=== PATIENT | male | born 1945 | race Caucasian/White ===

== ENCOUNTER 2018-12-23 21:46 | Inpatient (IN) | payer OTHER ==
[2018-12-24 01:37] VITALS: BP 126/69
[2018-12-24] MEDS ORDERED: Magnesium Hydroxide (MOM) 30 mL UDC PO PRN (01:38)
[2018-12-24] MEDS ORDERED: Dextrose 50% 50 mL Abboject IVP PRN (02:31)
[2018-12-24] MEDS ORDERED: GLUCAGON HCl 1 MG KIT IM PRN (02:31)
[2018-12-24] MEDS: INSULIN LISPRO SLIDING SCALE 100 UNITS/ML UNIT SUBQ SCH ×4 (06:46→20:18)
[2018-12-24 07:21] LABS: CHOLESTEROL 115 mg/dL (<200); HDL -HIGH DENSITY LIPOPROTEIN 31 mg/dL (23-92); TRIGLYCERIDES 208 mg/dL (<150)
[2018-12-24] MEDS ORDERED: Insulin Glargine 100 units/ml 10ml Vial SUBQ SCH (09:00)
[2018-12-24] MEDS ORDERED: Clotrimazole 1% Vaginal Cream 45 gm Tube VG SCH (09:00)
[2018-12-24] MEDS: Multivitamin Tab PO SCH (09:47)
[2018-12-24] MEDS: Aspirin 81mg Chewable Tab PO SCH (09:47)
--- NOTE | 2018-12-24 23:28 | History & Physical ---
ADMIT DATE: 12/24/2018 REASON FOR ADMISSION: Psychiatric disorder. HISTORY OF PRESENT ILLNESS: This is a 73-year-old male admitted to [facility] Unit for underlying psychiatric illnesses by Dr. Braun on this patient. The patient with underlying history of diabetes, hypertension, morbid obesity, diabetic neuropathy, and chronic low back pain. PAST SURGICAL HISTORY: Back surgery in the past. FAMILY HISTORY: No significant family history reported. SOCIAL HISTORY: The patient is a chronic smoker. Denies any alcohol or drug use. CURRENT MEDICATIONS: Per medication reconciliation. ALLERGIES: No known drug allergy. REVIEW OF SYSTEMS: Denies any fever. No chills, no nausea, no vomiting, no abdominal pain, no chest pain or trouble breathing. No headache. No hematemesis, no melena, no dysuria, no hematuria. Complaining of back pain. PHYSICAL EXAMINATION: VITAL SIGNS: Temperature 97.5, pulse 63, respirations 18, blood pressure 138/60. HEART: S1, S2 normal. LUNGS: Clear to auscultation bilaterally. ABDOMEN: Soft, nontender. NEUROLOGIC: The patient is alert, awake, follows commands, moves all extremities. EXTREMITIES: Bilateral mild edema noted. AVAILABLE LABORATORY DATA: As noted. ASSESSMENT: 1. Diabetes. 2. Hypertension. 3. Hyperlipidemia. 4. Morbid obesity. 5. Nicotine abuse. 6. Psych disorder. PLAN: Psych management per psychiatrist. The patient will be continued on basal-bolus insulin, diabetic diet. Monitor blood pressure. Monitor vitals. Naproxen for back pain. Smoking cessation advised. Psych management per psychiatrist. The patient is medically stable. Thank you Dr. Braun for allowing us to participate in the care of this patient. [facility]# [id number]
--- NOTE | 2018-12-25 03:01 | Psychiatric Evaluation ---
DATE OF SERVICE: 12/23/2018 IDENTIFYING DATA: The patient is a 73-year-old male transferred over here from [facility]. JUSTIFICATION FOR HOSPITALIZATION: The patient is admitted on 5150 as a danger to self and danger to others. CHIEF COMPLAINT: "I do not understand why they have to send me in here." HISTORY OF PRESENT ILLNESS: This patient is a 73-year-old male transferred from [facility], a resident of [facility] diagnosed to have bipolar disorder and the patient was reported to have been screaming and yelling and has been throwing himself out of the chair and also has been verbally abusive towards the staff members. The patient has been given a dose of Haldol, Ativan, and Benadryl and the patient was placed on 5150 and admitted over here for stabilization. During the evaluation, the patient is stating that he needs to have his trazodone. He needs to have his pain medications and the patient has been very aggressive and abusive towards the staff members. PAST PSYCHIATRIC HISTORY: Details are not known. MEDICAL HISTORY AND PHYSICAL EXAMINATION: Physical examination is requested to be done by Dr. Auguste. At the time of the hospitalization, the patient has been getting the insulin. The patient is also on the Latuda, lithium carbonate and trazodone. SUBSTANCE ABUSE HISTORY: Details are not known. SOCIAL HISTORY: The patient is a resident of the [facility] in [place]. STRENGTH AND ASSETS: The patient is motivated to seek some help. MENTAL STATUS EXAMINATION: The patient is a 73-year-old moderately obese, superficially cooperative. Eye contact is poor. Mood is noted to be irritable. Affect is constricted. The patient is screaming and yelling and I am not able to get much of information from him. The patient insight and judgment at this time are noted to be very much impaired. Impulse control is noted to be poor. The patient is alert and aware that he is in the hospital. Attention span and concentration are noted to be fair. The patient's behavior is equally danger to self and others. DIAGNOSTIC IMPRESSION: AXIS I: Bipolar disorder, mixed. AXIS II: None. AXIS III: As per Dr. Auguset. IMMEDIATE TREATMENT PLAN: The patient is going to be observed on the inpatient unit, provided with supportive psychotherapy. The patient is going to be encouraged to participate in the groups and verbalize the concerns. Once stabilized, the patient is going to be discharged to self to be followed up on an outpatient basis. [facility]# [id number]
[2018-12-25 05:09] LABS: A1C 6.9 % (4.8-5.6)
[2018-12-25] MEDS: INSULIN LISPRO SLIDING SCALE 100 UNITS/ML UNIT SUBQ SCH ×4 (06:30→20:51)
[2018-12-25] MEDS: Aspirin 81mg Chewable Tab PO SCH (09:29)
[2018-12-25] MEDS: Multivitamin Tab PO SCH (09:29)
[2018-12-25] MEDS: Insulin Glargine 100 units/ml 10ml Vial SUBQ SCH ×2 (10:10→10:18)
[2018-12-25] MEDS ORDERED: Haloperidol Lactate 5 mg/mL 1mL Vial IM STA (13:00)
[2018-12-25] MEDS ORDERED: Haloperidol Lactate 5 mg/mL 1mL Vial ONE (13:05)
--- NOTE | 2018-12-26 02:49 | Progress Notes ---
DATE: 12/25/2018 SUBJECTIVE: Staff was spoken to. The patient is interviewed. Mood is noted to be irritable. Affect is constricted. The patient is screaming and yelling at the top of his lungs. The patient has been verbally abusive. The patient has to be given a dose of Haldol, Ativan, and Benadryl to calm him down. The patient is currently on Seroquel, which is going to be increased to 20 mg twice a day and the patient is going to be closely monitored and encouraged to verbalize the concerns rather than to act out. The patient has no insight into his illness. The patient is very demanding for more pain medications and he is dictating what he needs to get. ASSESSMENT: The patient is still impulsive. PLAN: To continue the patient with the supportive therapy. I encouraged the patient to verbalize the concerns rather than to act out. [facility]# [id number]
[2018-12-26] MEDS: INSULIN LISPRO SLIDING SCALE 100 UNITS/ML UNIT SUBQ SCH ×4 (06:43→20:41)
[2018-12-26] MEDS: Multivitamin Tab PO SCH (08:35)
[2018-12-26] MEDS: Aspirin 81mg Chewable Tab PO SCH (08:35)
[2018-12-26] MEDS: Insulin Glargine 100 units/ml 10ml Vial SUBQ SCH (08:36)
--- NOTE | 2018-12-26 23:39 | Progress Notes ---
DATE: 12/26/2018 PSYCHIATRIC PROGRESS NOTE SUBJECTIVE: Staff was spoken to. The patient is interviewed. Mood is noted to be irritable. Affect is constricted. The patient is screaming and yelling. The patient has been throwing the stuff around. The patient has no insight into his illness. Staff has been trying to medicate the patient. The patent has been okay this morning, but this afternoon the patient has been getting out of control. In view of his multiple medical problems, we have been very careful in medicating this patient. The patient is currently on 25 mg of Seroquel, planning to increase that one to 50 mg twice a day and follow the patient. In view of the agitation and anxiety, we decided to increase the dose of the Ativan also to 1 mg q.4 hours p.r.n. for his anxiety. PLAN: To closely monitor the patient and followup. JOB# [id number]
[2018-12-27] MEDS: INSULIN LISPRO SLIDING SCALE 100 UNITS/ML UNIT SUBQ SCH ×4 (06:31→21:50)
[2018-12-27] MEDS: Maalox 30 mL Cup PO PRN ×3 (07:45→22:46)
[2018-12-27] MEDS: Aspirin 81mg Chewable Tab PO SCH (08:35)
[2018-12-27] MEDS: Multivitamin Tab PO SCH (08:37)
[2018-12-27] MEDS: Insulin Glargine 100 units/ml 10ml Vial SUBQ SCH (08:43)
--- NOTE | 2018-12-27 09:06 | Consultation ---
DATE OF CONSULTATION: 12/25/2018 REFERRING PHYSICIAN: Willy Hawkins MD TYPE OF CONSULTATION: Psychology. HISTORY OF PRESENT ILLNESS: The patient is a 73-year-old male patient. The patient was transferred here from [facility] and is being admitted on a 5150 as danger to self and to others. Upon interview, the patient states he does not know why he is being sent here. The following is by record review and by the patient's self-report. Record review indicates that the patient was reported to have been screaming and yelling and throwing himself out of his wheelchair and verbally abusive towards staff members at his placement, which is [facility]. The patient is complaining about pain and needing pain medication immediately. The patient is behaviorally aggressive and waving his hands and is verbally abusive towards the staff here. The patient did not answer the majority of the clinical interview questions. PAST MEDICAL HISTORY: Please see history and physical by Dr. Auguste. PAST PSYCHIATRIC HISTORY: Records are unavailable. Details are unknown. SUBSTANCE ABUSE HISTORY: The patient declined to answer these questions. History is unknown. PSYCHOSOCIAL HISTORY: The patient did not answer questions about occupational or educational history. 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 The patient states that he is . He states that he has a family member named Miya, who is involved in his care. The patient did not identify whether this is his daughter or his or what relationship he has to the aforementioned. The patient did not answer questions about history of physical or sexual abuse or current legal problems. MENTAL STATUS EXAMINATION: The patient appears to be his stated age and is moderately obese. Attitude is uncooperative. Eye contact is avoidant. Speech is loud. Mood is irritable. Affect is constricted. Thought process shows to be confused. The patient did not answer questions about experiencing auditory or visual hallucinations or delusions. He did not answer the questions about experiencing suicidal ideation or homicidal ideation with plan or intention. The patient is intermittently screaming and yelling at this advertising writer during the clinical interview. Impulse control is inadequate. Concentration is [id number]. The patient is mostly dismissive and is not answering the clinical interview questions. The patient did not participate in the memory assessment. Sensorium is alert and oriented to self and place. The patient did not participate in the interpretation of proverbs. Insight is impaired. Judgment is impaired. DIAGNOSTIC IMPRESSION: AXIS I: History of bipolar disorder, mixed. AXIS II: Deferred. AXIS III: Per Dr. Auguste. TREATMENT PLAN: The patient has been seen by Dr. Hawkins for psychiatric evaluation and for the management of the patient's psychotropic medications. The patient was given emergency medicine initially due to his volatility. We will provide supportive psychotherapy to include de-escalation and limit setting. We will provide anger management. We will provide cognitive and behavioral redirection. We will encourage the patient to demonstrate emotional and self-regulation and to verbalize his concerns versus acting out. We will provide motivational enhancement for the patient to become compliant and stay compliant with all aspects of his care and treatment. We will provide daily opportunities for the patient to verbally contract for safety, including no self-harm and no harm to others. We will provide coping strategies for phase of life issues as well. Thank you, Dr. Hawkins for this consult and the opportunity to participate in this patient's care. [facility]# [id number] [facility]
--- NOTE | 2018-12-28 01:37 | Progress Notes ---
DATE: 12/27/2018 SUBJECTIVE: Staff was spoken to. The patient is interviewed. Mood is noted to be irritable. Affect is constricted. Insight and judgment at this time are noted to be still impaired. Impulse control is noted to be limited. The patient has been having poor coping skills. The patient has been very obnoxious and has been throwing the food and has been cursing the staff at this time. ASSESSMENT: The patient is still impulsive. PLAN: To continue the patient with the current medications. I encouraged the patient to verbalize the concerns rather than to act out. JOB# [id number]
[2018-12-28] MEDS: INSULIN LISPRO SLIDING SCALE 100 UNITS/ML UNIT SUBQ SCH ×4 (06:53→20:19)
[2018-12-28] MEDS: Multivitamin Tab PO SCH (08:58)
[2018-12-28] MEDS: Aspirin 81mg Chewable Tab PO SCH (08:59)
[2018-12-28] MEDS: Maalox 30 mL Cup PO PRN ×2 (09:01→20:39)
[2018-12-28] MEDS: Insulin Glargine 100 units/ml 10ml Vial SUBQ SCH (09:57)
--- NOTE | 2018-12-28 19:49 | Progress Notes ---
DATE: 12/28/2018 PSYCHOLOGY PROGRESS NOTE SUBJECTIVE: The patient is seen and is interviewed. Case is discussed with staff. The patient presents as irritable and guarded. The patient has poor insight into his illness. The staff reports the patient's impulse control is still problematic. Staff reports also that the patient is intrusive, i.e., making obnoxious comments as well as throwing food and using profanity at the staff. OBJECTIVE: Mood is irritable. Affect is constricted. Thought process shows to be confused. The patient denied any auditory or visual hallucinations; however, the patient seems to be responding to internal stimuli. The patient denied any suicidal ideation, plan or intention. The patient's behavior has been poorly redirectable. ASSESSMENT AND PLAN: The patient is still impulsive and not responding to behavioral management. We provided de-escalation and limit setting. We encouraged the patient to demonstrate emotional and self-regulation and to verbalize his concerns versus acting out with appropriate language versus profanity. We provided reality orientation and integration. We provided coping strategies for phase of life issues. We will follow up in 2 days to continue the present treatment if the patient remains admitted on the unit. JOB# [id number] HUDSON
--- NOTE | 2018-12-29 00:50 | Progress Notes ---
DATE: 12/28/2018 PSYCHIATRIC PROGRESS NOTE PROGRESS ON THE UNIT: Staff was spoken to. The patient is interviewed. Mood is noted to be irritable. Affect is constricted. Insight and judgment at this time are noted to be still impaired. Impulse control is noted to be limited. The patient is screaming and yelling and has been having difficult time to cope with the stress. The patient is currently on 300 mg twice a day of lithium and I have decided to increase that one to 3 times a day in view of the patient's acute mood swings. The patient is not able to contract for safety. The patient is throwing the stuff and is very disruptive and it is becoming very difficult for the patient to be redirected. The patient is currently on Seroquel which is being given at 50 mg twice a day, lithium is going to be increased to 300 mg three times a day, and the patient is going to be closely monitored. The patient's glucose is running a little bit on the high side. ASSESSMENT: The patient is still grossly psychotic and impulsive. PLAN: To continue the patient with supportive therapy and followup. JOB# [id number]
[2018-12-29] MEDS: Maalox 30 mL Cup PO PRN ×2 (04:53→13:59)
[2018-12-29] MEDS: INSULIN LISPRO SLIDING SCALE 100 UNITS/ML UNIT SUBQ SCH ×4 (06:29→21:08)
[2018-12-29] MEDS: Multivitamin Tab PO SCH (08:43)
[2018-12-29] MEDS: Aspirin 81mg Chewable Tab PO SCH (08:44)
[2018-12-29] MEDS: Insulin Glargine 100 units/ml 10ml Vial SUBQ SCH (09:09)
[2018-12-29] MEDS ORDERED: Haloperidol Lactate 5 mg/mL 1mL Vial IM ONE (16:00)
[2018-12-29] MEDS ORDERED: Haloperidol Lactate 5 mg/mL 1mL Vial ONE (16:03)
[2018-12-30] MEDS: Maalox 30 mL Cup PO PRN ×3 (00:54→21:52)
--- NOTE | 2018-12-30 03:20 | Progress Notes ---
DATE: 12/29/2018 SUBJECTIVE: Staff was spoken to. The patient is interviewed. Mood is noted to be irritable. Affect is constricted. The patient is screaming and yelling and has been throwing things around. The patient has to be medicated. The patient has no insight into his illness. The patient's frustration tolerance is noted to be very poor. In view of the patient's multiple medical problems, we have been very careful in increasing the doses of the medications. JOB# [id number]
[2018-12-30] MEDS: INSULIN LISPRO SLIDING SCALE 100 UNITS/ML UNIT SUBQ SCH ×4 (06:37→21:27)
[2018-12-30] MEDS: Aspirin 81mg Chewable Tab PO SCH (08:17)
[2018-12-30] MEDS: Multivitamin Tab PO SCH (08:17)
[2018-12-30] MEDS: Insulin Glargine 100 units/ml 10ml Vial SUBQ SCH (08:33)
--- NOTE | 2018-12-30 22:14 | General Progress Note ---
Subjective - Review of Systems Service Date: 12/30/18 Subjective: patient seen and examined doing ok no new concern noted Objective - Results Recent Labs: Laboratory Last Values POC Glucose 136 MG/DL (70 - 105) H 12/27/18 11:43 Triglycerides 208 mg/dL (<150) H 12/24/18 06:36 Cholesterol 115 mg/dL (<200) 12/24/18 06:36 LDL Cholesterol Direct 63 mg/dL (75-193) L 12/24/18 06:36 HDL Cholesterol 31 mg/dL (23-92) 12/24/18 06:36 - Physical Exam Vitals and I&O: Vital Signs Temp 97.4 F 12/30/18 20:00 Pulse 66 12/30/18 20:00 Resp 19 12/30/18 20:00 BP 127/76 12/30/18 20:00 Pulse Ox 97 12/30/18 20:00 Intake & Output 12/30/18 12/30/18 12/31/18 06:59 18:59 06:59 Intake Total 720 1550 Balance 720 1550 Intake: Oral 720 1550 Other: # Voids 4 6 # Bowel Movements 0 1 Active Medications: Current Medications Al Hydrox/Mg Hydrox/Simethicone (Maalox) 30 ml PO Q4HR PRN PRN Reason: GI DISTRESS Stop: 02/22/19 01:37 Last Admin: 12/30/18 21:52 Dose: 30 ml Aspirin (Aspirin Chewable) 81 mg PO DAILY [facility] Stop: 02/22/19 08:59 Last Admin: 12/30/18 08:17 Dose: 81 mg Atorvastatin Calcium (Lipitor) 40 mg PO [facility]; Protocol Stop: 02/22/19 20:59 Last Admin: 12/30/18 21:02 Dose: 40 mg Bisacodyl (Dulcolax 10 Mg Supp) 10 mg RC DAILY PRN PRN Reason: Constipation Stop: 02/22/19 02:37 Carvedilol (Coreg) 25 mg PO BID [facility] Stop: 02/22/19 08:59 Last Admin: 12/30/18 16:20 Dose: 25 mg Cholecalciferol (Vitamin D3) 1,000 iu PO BID [facility] Stop: 02/22/19 08:59 Last Admin: 12/30/18 16:20 Dose: 1,000 iu Clotrimazole (Lotrimin 1% Cream) 1 appl TP DAILY [facility] Stop: 02/22/19 10:14 Last Admin: 12/30/18 08:19 Dose: 1 appl Dextrose (D50w) 50 ml IVP PRN PRN PRN Reason: Blood Glucose less than 70 Stop: 02/22/19 02:30 Dextrose (Glutose 40%) 18.75 gm PO PRN PRN PRN Reason: Blood Glucose less than 70 Stop: 02/22/19 02:30 Docusate Sodium (Colace) 250 mg PO BID [facility] Stop: 02/22/19 08:59 Last Admin: 12/30/18 16:20 Dose: 250 mg Gabapentin (Neurontin) 600 mg PO HS [facility] Stop: 02/22/19 20:59 Last Admin: 12/30/18 21:05 Dose: 600 mg Glucagon (Glucagen) 1 mg IM PRN PRN PRN Reason: Blood Glucose less than 70 Stop: 02/22/19 02:30 Insulin Glargine (Lantus Insulin) 20 units SUBQ DAILY [facility] Stop: 02/23/19 08:59 Last Admin: 12/30/18 08:33 Dose: 20 units Insulin Human Lispro (Humalog Insulin Sliding Scale) 0 units SUBQ ACHS [facility]; Protocol Stop: 02/22/19 07:29 Last Admin: 12/30/18 21:27 Dose: Not Given [place] Carbonate (Eskalith) 300 mg PO TID [facility]; Protocol Stop: 02/26/19 20:59 Last Admin: 12/30/18 21:05 Dose: 300 mg Lorazepam (Ativan) 1 mg PO Q4HR PRN; Protocol PRN Reason: Anxiety Stop: 01/22/19 22:14 Last Admin: 12/30/18 00:36 Dose: 1 mg Multivitamins/Vitamin C (Theragran) 1 tab PO DAILY [facility] Stop: 02/22/19 08:59 Last Admin: 12/30/18 08:17 Dose: 1 tab Naproxen (Naprosyn) 500 mg PO BIDWM [facility] Stop: 02/22/19 07:59 Last Admin: 12/30/18 17:36 Dose: 500 mg Quetiapine Fumarate (Seroquel) 50 mg PO BID [facility]; Protocol Stop: 02/24/19 16:59 Last Admin: 12/30/18 16:20 Dose: 50 mg Trazodone HCl (Desyrel) 50 mg PO HS PRN; Protocol PRN Reason: Insomnia Stop: 02/22/19 20:59 Last Admin: 12/30/18 21:07 Dose: 50 mg Cardiovascular: Regular rate Lungs: Clear to auscultation Abdomen: Soft, no Tender Assessment/Plan - Assessment Assessment: DM II HTN Constipation Low back pain - Plan Plan: Stable medically Continue current treatment plan Psych follow up Accucheck Monitor vitals Naproxen prn Nutritional Asmnt/Malnutr-PDOC - Dietary Evaluation Malnutrition Findings (Please click <Entered> for more info): Nutritional Asmnt/Malnutrition Start: 12/28/18 14: 50 Text: Status: Complete Freq: Protocol: Document 12/28/18 14:50 [id number] (Rec: 12/28/18 14:54 [email or web address] [email or web address]) Nutritional Asmnt/Malnutrition Patient General Information Nutritional Screening Moderate Risk Diagnosis psychosis Pertinent Medical Hx/Surgical Hx DM, HTN, morbid obesity, diabetic neuropathy, chronic low back pain Subjective Information Pt seen lying in bed at time of visit, awake and alert. Food preference provided to RD . Per EMR< PO intake 100%. Current Diet Order/ Nutrition Support CCHO Pertinent Medications lipitor, vit D3, colace, lantus, humalog, theragran, seroquel Pertinent Labs 12/27 POC 139 12/24 POC 213 Nutritional Hx/Data Height 1.73 m Height (Calculated Centimeters) 172.7 Current Weight (lbs) 113.398 kg Weight (Calculated Kilograms) 113.4 Weight (Calculated Grams) 376715.1 [place] Body Weight 154 Body Mass Index (BMI) 38.0 Weight Status Obese GI Symptoms GI Symptoms None Last BM 12/27 x 4 Difficult in: None Skin Integrity/Comment: no skin problem. angélica 15 Current %PO Good (75-100%) Estimated Nutritional Goals BEE in Kcals: Adj wt of IBW Calories/Kcals/Kg 23-27 Kcals Calculated 1791-3216 Protein: Adj wt of IBW Protein g/k Protein Calculated 81 Fluid: ml [id number] (1ml/kcal) Nutritional Problem 1. Problem Problem altered nutrition related labs Etiology hx of DM Signs/Symptoms: POC 136-213 Malnutrition Alert Is there a minimum of two criteria No selected? Query Text:Check all the applicable criteria. A minimum of two criteria are recommended for diagnosis of either severe or non-severe malnutrition. Malnutrition Related to Morbid Obesity Malnutrition related to morbid obesity No Intervention/Recommendation Comments 1. Continue with CCHO diet as ordered. 2. Monitor PO intake, wt, labs and skin integrity 3. F/U as low risk in 7 days Expected Outcomes/Goals Expected Outcomes/Goals 1. PO intake to meet at least 75% of nutritional needs. 2. Wt stability, skin to remain intact, labs to approach WNL.
--- NOTE | 2018-12-31 00:42 | Progress Notes ---
DATE: 12/30/2018 PSYCHIATRIC PROGRESS NOTE PROGRESS ON THE UNIT: Staff was spoken to. The patient is interviewed. Mood is noted to be irritable. Affect is constricted. The patient is stating that he is not cared for and he does not like to be in here, he wants to go back to his facility. The patient is currently on 50 mg of Seroquel and the patient is also receiving 50 mg of trazodone at nighttime. The patient has been getting easily irritable yesterday and the patient has to be given an emergency dose of medications. The patient's insight and judgment are noted to be still impaired. Impulse control seems to be improving. No side effects to the medications are noted. ASSESSMENT: The patient is still impulsive. PLAN: To continue the patient with current medications and followup. JOB# [id number]
--- NOTE | 2018-12-31 02:39 | Progress Notes ---
DATE: 12/30/2018 PSYCHOLOGY PROGRESS NOTE SUBJECTIVE: The patient is seen in his room. The patient is yelling and screaming loudly and is not responding initially to the de-escalation. The patient continued to repeat "let me out of here." The patient is easily frustrated and agitated. Staff reports the patient is intermittently compliant with his care and treatment and is difficult to contain and difficult to approach according to the staff. OBJECTIVE: Mood is irritable. Affect is constricted. Thought process is confused. The patient did not answer questions about suicidal ideation. The patient did not answer questions about hallucinations or delusions. The patient did not answer the majority of the clinical interview questions. The patient is screaming and yelling and repeating that he needs to be let out of here. The patient is also moaning in between his verbal outbursts. ASSESSMENT AND PLAN: The patient's mood fluctuations persist. The patient is not responding to de-escalation or limit setting. Emergency medicine has been ordered. Medications are being closely monitored due to the patient's multiple medical problems. The patient has no insight into his illness. The patient has a long history of bipolar disorder with psychotic symptoms. The patient has been intermittently compliant with his medications. We provided motivational enhancement for the patient to become compliant and stay compliant with his care and treatment. We provided de-escalation and limit setting. We provided stress management to assist the patient in increasing his frustration tolerance. We provided remotivation for the patient to follow through with staff direction and to verbalize his concerns versus verbally acting out. We will follow up in 2 days to continue the present treatment if the patient remains on the unit. This selling underwriter will reassess the patient's capacity to benefit from psychology services and behavioral management approaches on the next visit. JOB# [id number] HUDSON
[2018-12-31] MEDS: INSULIN LISPRO SLIDING SCALE 100 UNITS/ML UNIT SUBQ SCH ×4 (06:29→21:34)
[2018-12-31] MEDS: Insulin Glargine 100 units/ml 10ml Vial SUBQ SCH (08:10)
[2018-12-31] MEDS: Maalox 30 mL Cup PO PRN ×2 (08:50→15:32)
[2018-12-31] MEDS: Aspirin 81mg Chewable Tab PO SCH (08:52)
[2018-12-31] MEDS: Multivitamin Tab PO SCH (08:52)
[2019-01-01] MEDS: INSULIN LISPRO SLIDING SCALE 100 UNITS/ML UNIT SUBQ SCH ×4 (06:33→20:28)
[2019-01-01] MEDS: Maalox 30 mL Cup PO PRN ×3 (06:43→20:10)
[2019-01-01] MEDS: Aspirin 81mg Chewable Tab PO SCH (09:00)
[2019-01-01] MEDS: Insulin Glargine 100 units/ml 10ml Vial SUBQ SCH (09:00)
[2019-01-01] MEDS: Multivitamin Tab PO SCH (09:14)
--- NOTE | 2019-01-01 09:54 | Progress Notes ---
DATE: 12/31/2018 PSYCHIATRIC PROGRESS NOTE SUBJECTIVE: Staff was spoken to. The patient is interviewed. Mood is noted to be irritable. Affect is constricted. The patient has been less irritable compared to the other days. The patient has been able to participate in the groups and verbalize the concerns. The patient's [id number], who is the power of prosecuting attorney has been spoken to in detail. It seems to be the patient's baseline and the patient's [id number] mentioned that the patient has not been like this one before and she was wondering whether he has been compliant with the medication or not. counselor manager has been trying to get in touch with the [facility] and is to see if they are going to accept the patient back or not. ASSESSMENT: The patient is stabilizing and awaiting placement. PLAN: To continue the patient with the supportive therapy and followup. JOB# [id number]
[2019-01-02] MEDS: Maalox 30 mL Cup PO PRN ×3 (02:43→16:32)
[2019-01-02] MEDS: INSULIN LISPRO SLIDING SCALE 100 UNITS/ML UNIT SUBQ SCH ×4 (06:34→20:54)
[2019-01-02] MEDS: Aspirin 81mg Chewable Tab PO SCH (07:59)
[2019-01-02] MEDS: Multivitamin Tab PO SCH (08:00)
[2019-01-02] MEDS: Insulin Glargine 100 units/ml 10ml Vial SUBQ SCH (08:16)
--- NOTE | 2019-01-02 17:52 | Progress Notes ---
DATE: 01/01/2019 DATE OF SERVICE: 01/01/2019 PSYCHOLOGY PROGRESS NOTE SUBJECTIVE: The patient is seen. The patient also was spoken to. Case is discussed with staff. The patient continues to be irritable and easily agitated; however, the patient seems to be less irritable during this visit. The staff indicates the patient's [id number] who has power of trust and estates attorney is involved in his care. The home health care case manager and the attending psychiatrist have discussed the patient's status with the patient's [id number]. Placement is being considered at this point. OBJECTIVE: Mood is irritable. Affect is constricted. Thought process includes perseveration on the patient's discharge. The patient is difficult to cognitively redirect and is generally antagonistic. Affect is constricted. The patient did not answer questions about experiencing auditory or visual hallucinations or delusions. The patient's behavior has been compliant with his p.o. medication. The patient participated in the milieu therapy at times, but is mostly isolative. ASSESSMENT AND PLAN: The patient is awaiting placement. Behavioral issues persist. We provided remotivation for the patient to become compliant and stay compliant with his care and treatment. We encouraged the patient to demonstrate emotional and self-regulation and to verbalize his concerns and needs appropriately versus acting out. We provided reality integration. We provided coping strategies for phase of life issues as well as for chronic severe mental illness. No followup is indicated at this point. The patient is awaiting placement. This contract technical writer will follow up contingent upon the patient's continued admission on the unit and if the patient demonstrates the capacity to benefit from psychotherapeutic and behavioral management interventions. [facility]# [id number] [place]
--- NOTE | 2019-01-02 19:49 | Progress Notes ---
DATE: 01/01/2019 SUBJECTIVE: Staff was spoken to. The patient is interviewed. Mood is noted to be irritable. Affect is constricted. The patient's insight and judgment at this time are noted to be improving. Impulse control is noted to be fair. The patient has been having difficult time to cope with the stress. The patient wants everything to be done immediately and if he does not meet his needs, the patient tends to scream and yell. No side effects to the medications are noted. jewelry manager has been spoken to and they have been trying to get the patient to the placement. So far they have been working and no placement is available. The patient's [id number] has been spoken to and she has been mentioning that the place that is the [facility] may not be appropriate place and that she wants him to be in a different area. ASSESSMENT: The patient is stabilizing. PLAN: To continue the patient with the supportive therapy, encouraged the patient and they wait for placement ____. [facility]# [id number]
[2019-01-03] MEDS: Maalox 30 mL Cup PO PRN (06:30)
[2019-01-03] MEDS: INSULIN LISPRO SLIDING SCALE 100 UNITS/ML UNIT SUBQ SCH ×4 (06:31→21:32)
[2019-01-03] MEDS: Multivitamin Tab PO SCH (08:24)
[2019-01-03] MEDS: Aspirin 81mg Chewable Tab PO SCH (08:25)
[2019-01-03] MEDS: Insulin Glargine 100 units/ml 10ml Vial SUBQ SCH (08:33)
[2019-01-04] MEDS: Maalox 30 mL Cup PO PRN ×2 (06:44→13:20)
[2019-01-04] MEDS: INSULIN LISPRO SLIDING SCALE 100 UNITS/ML UNIT SUBQ SCH ×4 (06:51→21:56)
[2019-01-04] MEDS: Multivitamin Tab PO SCH (09:24)
[2019-01-04] MEDS: Aspirin 81mg Chewable Tab PO SCH (09:24)
[2019-01-04] MEDS: Insulin Glargine 100 units/ml 10ml Vial SUBQ SCH (10:07)
[2019-01-05] MEDS: Maalox 30 mL Cup PO PRN ×3 (02:49→17:40)
[2019-01-05] MEDS: INSULIN LISPRO SLIDING SCALE 100 UNITS/ML UNIT SUBQ SCH ×4 (06:35→20:42)
[2019-01-05] MEDS: Aspirin 81mg Chewable Tab PO SCH (08:01)
[2019-01-05] MEDS: Multivitamin Tab PO SCH (08:03)
[2019-01-05] MEDS: Insulin Glargine 100 units/ml 10ml Vial SUBQ SCH (09:20)
[2019-01-06] MEDS: INSULIN LISPRO SLIDING SCALE 100 UNITS/ML UNIT SUBQ SCH ×4 (06:32→20:59)
[2019-01-06] MEDS: Aspirin 81mg Chewable Tab PO SCH ×2 (08:23→09:00)
[2019-01-06] MEDS: Multivitamin Tab PO SCH ×2 (08:23→09:00)
[2019-01-06] MEDS: Insulin Glargine 100 units/ml 10ml Vial SUBQ SCH (08:34)
--- NOTE | 2019-01-06 09:18 | Progress Notes ---
DATE: 01/05/2019 SUBJECTIVE: Staff was spoken to. The patient is interviewed. Mood is noted to be irritable. Affect is constricted. The patient is screaming and yelling, stating that he does not want to be here, he wants to go to a different facility. The patient has been having very poor impulse control. The patient is currently on lithium and has been able to tolerate the medication. The patient, in view of the impulsivity, needs to be continued with the current medications, but unfortunately, the patient has no place to return to because the staff has been mentioning that they have been not able to find a placement that is going to be approved with the current patient's insurance. They have applied for [facility] and patient's placement is pending at this time. The patient is currently on lithium and Seroquel and he is able to tolerate the medications. No side effects to the medications are reported at this time. The patient is still impulsive. The patient's mood swings are still a concern. ASSESSMENT: The patient is awaiting placement. PLAN: To continue the patient with supportive therapy. I encouraged the patient to verbalize the concerns rather than to act out. JOB# [id number]
--- NOTE | 2019-01-07 03:47 | Progress Notes ---
DATE: 01/06/2019 PSYCHIATRIC PROGRESS NOTE PROGRESS ON THE UNIT: Staff was spoken to. The patient is interviewed. Mood is noted to be less irritable. Affect is appropriate. The patient is stating that he is waiting for placement and he could not figure it out why he has to be here this long. No side effects to the medications are noted. Mood swings are coming under control. Sleep and appetite are also noted to be fair. ASSESSMENT: The patient's mood swings are coming under control. PLAN: To continue the patient with current medications. I encouraged the patient to verbalize the concerns rather than to act out. JOB# [id number]
[2019-01-07] MEDS: INSULIN LISPRO SLIDING SCALE 100 UNITS/ML UNIT SUBQ SCH ×4 (06:33→21:59)
[2019-01-07] MEDS: Aspirin 81mg Chewable Tab PO SCH (09:00)
[2019-01-07] MEDS: Multivitamin Tab PO SCH (09:00)
[2019-01-07] MEDS: Insulin Glargine 100 units/ml 10ml Vial SUBQ SCH (09:00)
[2019-01-08] MEDS: INSULIN LISPRO SLIDING SCALE 100 UNITS/ML UNIT SUBQ SCH ×4 (06:39→20:45)
[2019-01-08] MEDS: Insulin Glargine 100 units/ml 10ml Vial SUBQ SCH (08:13)
[2019-01-08] MEDS: Aspirin 81mg Chewable Tab PO SCH (08:13)
[2019-01-08] MEDS: Multivitamin Tab PO SCH (08:14)
[2019-01-08] MEDS: Maalox 30 mL Cup PO PRN ×2 (12:42→17:47)
--- NOTE | 2019-01-08 19:50 | Progress Notes ---
DATE: 01/08/2019 SUBJECTIVE: Staff was spoken to. The patient is interviewed. Mood is noted to be anxious. Affect is appropriate. The patient is not suicidal or homicidal. Insight and judgment are noted to be fair. Impulse control is also noted to be improving. No side effects to the medications are noted. The patient is currently on lithium and Seroquel and has been able to tolerate the medications. No side effects to the medications are noted. The patient's lithium level is noted to be 1.7 and hence it is decided to change the lithium to 300 mg b.i.d. and follow the patient up with supportive therapy. JOB# [id number]
[2019-01-09] MEDS: Maalox 30 mL Cup PO PRN (03:55)
[2019-01-09] MEDS: INSULIN LISPRO SLIDING SCALE 100 UNITS/ML UNIT SUBQ SCH ×4 (06:39→20:34)
--- NOTE | 2019-01-09 09:03 | Progress Notes ---
DATE: 01/08/2019 SUBJECTIVE: Staff was spoken to. The patient is interviewed. Mood is noted to be less irritable. Affect is appropriate. The patient is being closely monitored because the lithium level has been noted to be 1.27 and has been decreased to 300 mg twice a day. The patient is being closely monitored. No side effects to the medications are noted and the case fitter has been reporting that they have [facility] and so far no [facility] has been available and possibly saying that the patient is going to be discharged by Friday. ASSESSMENT: The patient is stabilizing and awaiting placement. PLAN: To continue the patient with the supportive therapy and followup. JOB# [id number]
[2019-01-09] MEDS: Multivitamin Tab PO SCH (09:15)
[2019-01-09] MEDS: Aspirin 81mg Chewable Tab PO SCH (09:16)
[2019-01-09] MEDS: Insulin Glargine 100 units/ml 10ml Vial SUBQ SCH (09:32)
--- NOTE | 2019-01-10 00:34 | Progress Notes ---
DATE: 01/09/2019 SUBJECTIVE: Staff was spoken to. The patient is interviewed. Mood is noted to be irritable. Affect is constricted. Insight and judgment at this time are noted to be still impaired. Impulse control seems to be improving. No side effects to the medications are noted. The patient is stating that he is doing fairly well and is waiting for placement. manager business systems has been spoken to and they are looking into placement of this patient through the [facility] and the placement is not available until Friday and the patient has been informed of it and we will continue the patient with her medications and followup. JOB# [id number]
[2019-01-10] MEDS: INSULIN LISPRO SLIDING SCALE 100 UNITS/ML UNIT SUBQ SCH ×4 (06:46→20:29)
[2019-01-10] MEDS: Insulin Glargine 100 units/ml 10ml Vial SUBQ SCH (09:00)
[2019-01-10] MEDS: Aspirin 81mg Chewable Tab PO SCH (09:22)
[2019-01-10] MEDS: Multivitamin Tab PO SCH (09:24)
--- NOTE | 2019-01-10 11:12 | Progress Notes ---
DATE: 01/09/2019 PSYCHOLOGY PROGRESS NOTE SUBJECTIVE: The patient is seen in followup to monitor the patient's behavior and compliance with care and treatment. The patient does not seem to be benefiting from psychotherapeutic interventions or behavioral management interventions provided. The patient is taking his medication and is being monitored on his lithium level. OBJECTIVE: Mood is irritable. Affect is constricted. Thought process shows to be concrete. The patient is generally oppositional. The patient did not answer questions about hallucinations or delusions. Staff reports the patient is expected to possibly be discharged by Friday. The patient continues to be isolative in his room with intermittent yelling episodes. ASSESSMENT AND PLAN: Staff reports the patient is possibly stabilizing and awaiting placement. The case sealer states that she is in coordination with the [facility] and that no placement has been available thus far. However, case management states that as soon as [facility] the [facility], the patient will be discharged. We will continue to provide treatment throughout the patient's hospital stay. Psychology services with respect to treatment have been discontinued. The patient has not participated or interacted with the therapeutic interventions provided. We provided positive reinforcement and remotivation for the patient to follow through with staff direction as well as accepting [facility] the [facility]. No followup is indicated. The patient is seen as a courtesy by the staff and the attending psychiatrist to provide monitoring of the patient's behavior and to provide remotivation for the patient to accept [facility] the [facility]. JOB# [id number] [place]
--- NOTE | 2019-01-10 23:20 | Progress Notes ---
DATE: 01/10/2019 SUBJECTIVE: Staff was spoken to. The patient is interviewed. Mood is noted to be irritable. Affect is constricted. Coping skills at this time are noted to very poor. The patient has been having difficult time to cope with the stress. The patient is stating that he has been waiting patiently for placement and also the patient has been willing to comply with the treatment. No belligerent behavior is noted at this time. The patient has been so far compliant with the medications. No side effects are noted. PLAN: To continue the patient with the current medications and followup. JOB# [id number]
[2019-01-11] MEDS: INSULIN LISPRO SLIDING SCALE 100 UNITS/ML UNIT SUBQ SCH ×4 (06:34→21:45)
[2019-01-11] MEDS: Insulin Glargine 100 units/ml 10ml Vial SUBQ SCH (08:22)
[2019-01-11] MEDS: Aspirin 81mg Chewable Tab PO SCH (08:22)
[2019-01-11] MEDS: Multivitamin Tab PO SCH (08:22)
--- NOTE | 2019-01-12 04:36 | Progress Notes ---
DATE: 01/11/2019 PSYCHIATRIC PROGRESS NOTE SUBJECTIVE: Staff was spoken to. The patient is interviewed. Mood is noted to be anxious. Affect is appropriate. The patient is reporting that someone promised him that he is going to be discharged and for placement, but nothing has happened. Staff was spoken to and they are mentioning that social service coordinator have been trying to reach the [facility] to have [facility] the patient, but so far no placement has been coming through. Insight and judgment at this time are noted to be improving. Impulse control is noted to be fair. No side effects to the medications are noted. ASSESSMENT: The patient is stabilizing and awaiting placement. PLAN: To continue the patient with the supportive therapy. I encouraged the patient to verbalize the concerns rather than to act out. JOB# [id number]
[2019-01-12] MEDS: INSULIN LISPRO SLIDING SCALE 100 UNITS/ML UNIT SUBQ SCH ×4 (06:51→21:06)
[2019-01-12] MEDS: Aspirin 81mg Chewable Tab PO SCH (08:13)
[2019-01-12] MEDS: Multivitamin Tab PO SCH (08:14)
[2019-01-12] MEDS: Insulin Glargine 100 units/ml 10ml Vial SUBQ SCH (08:49)
--- NOTE | 2019-01-12 20:58 | General Progress Note ---
Subjective - Review of Systems Service Date: 01/12/19 Subjective: patient doing ok no new concern noted Objective - Results Recent Labs: Laboratory Last Values POC Glucose 127 MG/DL (70 - 105) H 01/12/19 17:17 Triglycerides 208 mg/dL (<150) H 12/24/18 06:36 Cholesterol 115 mg/dL (<200) 12/24/18 06:36 LDL Cholesterol Direct 63 mg/dL (75-193) L 12/24/18 06:36 HDL Cholesterol 31 mg/dL (23-92) 12/24/18 06:36 [place] 1.27 mmol/L (0.5-1.0) H 01/05/19 18:10 - Physical Exam Vitals and I&O: Vital Signs Temp 98.3 F 01/12/19 20:16 Pulse 82 01/12/19 20:16 Resp 20 01/12/19 20:16 BP 110/65 01/12/19 20:16 Pulse Ox 95 01/12/19 20:16 Intake & Output 01/12/19 01/12/19 01/13/19 06:59 18:59 06:59 Intake Total 240 1600 120 Balance 240 1600 120 Intake: Oral 240 1600 120 Other: # Voids 2 4 3 # Bowel Movements 0 0 Active Medications: Current Medications Al Hydrox/Mg Hydrox/Simethicone (Maalox) 30 ml PO Q4HR PRN PRN Reason: GI DISTRESS Stop: 02/22/19 01:37 Last Admin: 01/09/19 03:55 Dose: 30 ml Aspirin (Aspirin Chewable) 81 mg PO DAILY [facility] Stop: 02/22/19 08:59 Last Admin: 01/12/19 08:13 Dose: 81 mg Atorvastatin Calcium (Lipitor) 40 mg PO [facility]; Protocol Stop: 02/22/19 20:59 Last Admin: 01/11/19 21:39 Dose: 40 mg Bisacodyl (Dulcolax 10 Mg Supp) 10 mg RC DAILY PRN PRN Reason: Constipation Stop: 02/22/19 02:37 Carvedilol (Coreg) 25 mg PO BID [facility] Stop: 02/22/19 08:59 Last Admin: 01/12/19 17:36 Dose: 25 mg Cholecalciferol (Vitamin D3) 1,000 iu PO BID [facility] Stop: 02/22/19 08:59 Last Admin: 01/12/19 17:34 Dose: 1,000 iu Dextrose (D50w) 50 ml IVP PRN PRN PRN Reason: Blood Glucose less than 70 Stop: 02/22/19 02:30 Dextrose (Glutose 40%) 18.75 gm PO PRN PRN PRN Reason: Blood Glucose less than 70 Stop: 02/22/19 02:30 Docusate Sodium (Colace) 250 mg PO BID [facility] Stop: 02/22/19 08:59 Last Admin: 01/12/19 17:36 Dose: Not Given Gabapentin (Neurontin) 600 mg PO HS [facility] Stop: 02/22/19 20:59 Last Admin: 01/11/19 21:40 Dose: 600 mg Glucagon (Glucagen) 1 mg IM PRN PRN PRN Reason: Blood Glucose less than 70 Stop: 02/22/19 02:30 Insulin Glargine (Lantus Insulin) 20 units SUBQ DAILY [facility] Stop: 02/23/19 08:59 Last Admin: 01/12/19 08:49 Dose: 20 units Insulin Human Lispro (Humalog Insulin Sliding Scale) 0 units SUBQ ACHS [facility]; Protocol Stop: 02/22/19 07:29 Last Admin: 01/12/19 16:37 Dose: Not Given [place] Carbonate (Eskalith) 300 mg PO BID [facility]; Protocol Stop: 03/09/19 08:59 Last Admin: 01/12/19 17:35 Dose: 300 mg Lorazepam (Ativan) 1 mg PO Q4HR PRN; Protocol PRN Reason: Anxiety Stop: 01/22/19 22:14 Last Admin: 01/12/19 17:36 Dose: 1 mg Multivitamins/Vitamin C (Theragran) 1 tab PO DAILY [facility] Stop: 02/22/19 08:59 Last Admin: 01/12/19 08:14 Dose: 1 tab Naproxen (Naprosyn) 500 mg PO BIDWM [facility] Stop: 02/22/19 07:59 Last Admin: 01/12/19 17:35 Dose: 500 mg Quetiapine Fumarate (Seroquel) 50 mg PO BID [facility]; Protocol Stop: 02/24/19 16:59 Last Admin: 01/12/19 17:36 Dose: Not Given Trazodone HCl (Desyrel) 50 mg PO HS PRN; Protocol PRN Reason: Insomnia Stop: 02/22/19 20:59 Last Admin: 01/11/19 21:50 Dose: 50 mg Cardiovascular: Regular rate Lungs: Clear to auscultation Abdomen: Soft, no Tender Assessment/Plan - Assessment Assessment: DM II HTN Constipation Low back pain - Plan Plan: Doing fine Continue current treatment plan Psych management per psych Monitor vitals Fall precaution Asp precaution Nutritional Asmnt/Malnutr-PDOC - Dietary Evaluation Malnutrition Findings (Please click <Entered> for more info): Nutritional Asmnt/Malnutrition Start: 12/28/18 14: 50 Text: Status: Complete Freq: Protocol: Document 12/28/18 14:50 LCHENG (Rec: 12/28/18 14:54 [id number]) Nutritional Asmnt/Malnutrition Patient General Information Nutritional Screening Moderate Risk Diagnosis psychosis Pertinent Medical Hx/Surgical Hx DM, HTN, morbid obesity, diabetic neuropathy, chronic low back pain Subjective Information Pt seen lying in bed at time of visit, awake and alert. Food preference provided to RD . Per EMR< PO intake 100%. Current Diet Order/ Nutrition Support CCHO Pertinent Medications lipitor, vit D3, colace, lantus, humalog, theragran, seroquel Pertinent Labs 12/27 POC 139 12/24 POC 213 Nutritional Hx/Data Height 1.73 m Height (Calculated Centimeters) 172.7 Current Weight (lbs) 113.398 kg Weight (Calculated Kilograms) 113.4 Weight (Calculated Grams) 593939.1 [place] Body Weight 154 Body Mass Index (BMI) 38.0 Weight Status Obese GI Symptoms GI Symptoms None Last BM 12/27 x 4 Difficult in: None Skin Integrity/Comment: no skin problem. angélica 15 Current %PO Good (75-100%) Estimated Nutritional Goals BEE in Kcals: Adj wt of IBW Calories/Kcals/Kg 23-27 Kcals Calculated 5477-8612 Protein: Adj wt of IBW Protein g/k Protein Calculated 81 Fluid: ml 1863-2187ml (1ml/kcal) Nutritional Problem 1. Problem Problem altered nutrition related labs Etiology hx of DM Signs/Symptoms: POC 136-213 Malnutrition Alert Is there a minimum of two criteria No selected? Query Text:Check all the applicable criteria. A minimum of two criteria are recommended for diagnosis of either severe or non-severe malnutrition. Malnutrition Related to Morbid Obesity Malnutrition related to morbid obesity No Intervention/Recommendation Comments 1. Continue with [facility]CHO diet as ordered. 2. Monitor PO intake, wt, labs and skin integrity 3. F/U as low risk in 7 days Expected Outcomes/Goals Expected Outcomes/Goals 1. PO intake to meet at least 75% of nutritional needs. 2. Wt stability, skin to remain intact, labs to approach WNL.
[2019-01-13] MEDS: INSULIN LISPRO SLIDING SCALE 100 UNITS/ML UNIT SUBQ SCH ×4 (06:48→20:02)
[2019-01-13] MEDS: Aspirin 81mg Chewable Tab PO SCH (08:45)
[2019-01-13] MEDS: Multivitamin Tab PO SCH (08:46)
[2019-01-13] MEDS: Insulin Glargine 100 units/ml 10ml Vial SUBQ SCH (09:06)
--- NOTE | 2019-01-13 20:10 | Progress Notes ---
DATE: 01/12/2019 PSYCHIATRIC PROGRESS NOTE SUBJECTIVE: Staff was spoken to. The patient is interviewed. Mood is noted to be irritable. Affect is constricted. Insight and judgment are noted to be still impaired. Impulse control is noted to be limited. Coping skills are noted to be limited. The patient has been having difficult time to cope with the stress. The patient is frustrated that he is still here, he wants to be placed. ASSESSMENT: The patient is stabilizing, not suicidal or homicidal. PLAN: To continue the patient with the supportive therapy and followup and await for placement. [facility]# [id number]
--- NOTE | 2019-01-14 08:53 | Progress Notes ---
DATE: 01/13/2019 SUBJECTIVE: Staff was spoken to. The patient is interviewed. Mood is noted to be irritable. Affect is constricted. The patient is stating that he is frustrated for being in here. He would like to go to a [facility] facility. client hr manager has been working on this, but so far no placement is available. The patient's mood swings are coming under control. No major side effects to the medications are noted. ASSESSMENT: The patient is stabilizing and awaiting placement. JOB# [id number]
[2019-01-14] MEDS: Aspirin 81mg Chewable Tab PO SCH (09:14)
[2019-01-14] MEDS: Insulin Glargine 100 units/ml 10ml Vial SUBQ SCH (09:15)
[2019-01-14] MEDS: Multivitamin Tab PO SCH (09:15)
[2019-01-14] MEDS: INSULIN LISPRO SLIDING SCALE 100 UNITS/ML UNIT SUBQ SCH ×4 (09:15→20:46)
--- NOTE | 2019-01-14 22:34 | General Progress Note ---
Subjective - Review of Systems Service Date: 01/14/19 Subjective: patient doing ok denied any complaints Objective - Results Recent Labs: Laboratory Last Values POC Glucose 116 MG/DL (70 - 105) H 01/14/19 20:42 Triglycerides 208 mg/dL (<150) H 12/24/18 06:36 Cholesterol 115 mg/dL (<200) 12/24/18 06:36 LDL Cholesterol Direct 63 mg/dL (75-193) L 12/24/18 06:36 HDL Cholesterol 31 mg/dL (23-92) 12/24/18 06:36 [place] 1.27 mmol/L (0.5-1.0) H 01/05/19 18:10 - Physical Exam Vitals and I&O: Vital Signs Temp 97.7 F 01/14/19 22:01 Pulse 60 01/14/19 22:01 Resp 20 01/14/19 22:01 BP 132/75 01/14/19 22:01 Pulse Ox 95 01/14/19 22:01 Intake & Output 01/14/19 01/14/19 01/15/19 06:59 18:59 06:59 Intake Total 120 Balance 120 Intake: Oral 120 Other: # Voids 3 4 # Bowel Movements 0 Active Medications: Current Medications Al Hydrox/Mg Hydrox/Simethicone (Maalox) 30 ml PO Q4HR PRN PRN Reason: GI DISTRESS Stop: 02/22/19 01:37 Last Admin: 01/09/19 03:55 Dose: 30 ml Aspirin (Aspirin Chewable) 81 mg PO DAILY [facility] Stop: 02/22/19 08:59 Last Admin: 01/14/19 09:14 Dose: 81 mg Atorvastatin Calcium (Lipitor) 40 mg PO HS [facility]; Protocol Stop: 02/22/19 20:59 Last Admin: 01/14/19 20:45 Dose: 40 mg Bisacodyl (Dulcolax 10 Mg Supp) 10 mg RC DAILY PRN PRN Reason: Constipation Stop: 02/22/19 02:37 Carvedilol (Coreg) 25 mg PO BID [facility] Stop: 02/22/19 08:59 Last Admin: 01/14/19 16:29 Dose: 25 mg Cholecalciferol (Vitamin D3) 1,000 iu PO BID [facility] Stop: 02/22/19 08:59 Last Admin: 01/14/19 16:28 Dose: 1,000 iu Dextrose (D50w) 50 ml IVP PRN PRN PRN Reason: Blood Glucose less than 70 Stop: 02/22/19 02:30 Dextrose (Glutose 40%) 18.75 gm PO PRN PRN PRN Reason: Blood Glucose less than 70 Stop: 02/22/19 02:30 Docusate Sodium (Colace) 250 mg PO BID [facility] Stop: 02/22/19 08:59 Last Admin: 01/14/19 16:30 Dose: Not Given Gabapentin (Neurontin) 600 mg PO HS [facility] Stop: 02/22/19 20:59 Last Admin: 01/14/19 20:45 Dose: 600 mg Glucagon (Glucagen) 1 mg IM PRN PRN PRN Reason: Blood Glucose less than 70 Stop: 02/22/19 02:30 Insulin Glargine (Lantus Insulin) 20 units SUBQ DAILY [facility] Stop: 02/23/19 08:59 Last Admin: 01/14/19 09:15 Dose: Not Given Insulin Human Lispro (Humalog Insulin Sliding Scale) 0 units SUBQ ACHS [facility]; Protocol Stop: 02/22/19 07:29 Last Admin: 01/14/19 20:46 Dose: Not Given [place] Carbonate (Eskalith) 300 mg PO BID [facility]; Protocol Stop: 03/09/19 08:59 Last Admin: 01/14/19 16:29 Dose: 300 mg Multivitamins/Vitamin C (Theragran) 1 tab PO DAILY [facility] Stop: 02/22/19 08:59 Last Admin: 01/14/19 09:15 Dose: 1 tab Naproxen (Naprosyn) 500 mg PO BIDWM [facility] Stop: 02/22/19 07:59 Last Admin: 01/14/19 09:13 Dose: 500 mg Quetiapine Fumarate (Seroquel) 50 mg PO BID [facility]; Protocol Stop: 02/24/19 16:59 Last Admin: 01/14/19 16:28 Dose: 50 mg Trazodone HCl (Desyrel) 50 mg PO HS PRN; Protocol PRN Reason: Insomnia Stop: 02/22/19 20:59 Last Admin: 01/13/19 21:03 Dose: 50 mg Cardiovascular: Regular rate Lungs: Clear to auscultation Abdomen: Soft, no Tender Assessment/Plan - Assessment Assessment: DM II HTN Constipation Low back pain - Plan Plan: Doing fine Continue current treatment plan Psych management per psych Monitor vitals [place] precaution Asp precaution Nutritional Asmnt/Malnutr-PDOC - Dietary Evaluation Malnutrition Findings (Please click <Entered> for more info): Nutritional Asmnt/Malnutrition Start: 12/28/18 14: 50 Text: Status: Complete Freq: Protocol: Document 12/28/18 14:50 LCHENG (Rec: 12/28/18 14:54 [id number]) Nutritional Asmnt/Malnutrition Patient General Information Nutritional Screening Moderate Risk Diagnosis psychosis Pertinent Medical Hx/Surgical Hx DM, HTN, morbid obesity, diabetic neuropathy, chronic low back pain Subjective Information Pt seen lying in bed at time of visit, awake and alert. Food preference provided to RD . Per EMR< PO intake 100%. Current Diet Order/ Nutrition Support CCHO Pertinent Medications lipitor, vit D3, colace, lantus, humalog, theragran, seroquel Pertinent Labs 12/27 POC 139 12/24 POC 213 Nutritional Hx/Data Height 1.73 m Height (Calculated Centimeters) 172.7 Current Weight (lbs) 113.398 kg Weight (Calculated Kilograms) 113.4 Weight (Calculated Grams) 204330.1 [place] Body Weight 154 Body Mass Index (BMI) 38.0 Weight Status Obese GI Symptoms GI Symptoms None Last BM 12/27 x 4 Difficult in: None Skin Integrity/Comment: no skin problem. angélica 15 Current %PO Good (75-100%) Estimated Nutritional Goals BEE in Kcals: Adj wt of IBW Calories/Kcals/Kg 23-27 Kcals Calculated 8159-1999 Protein: Adj wt of IBW Protein g/k Protein Calculated 81 Fluid: ml 1863-2187ml (1ml/kcal) Nutritional Problem 1. Problem Problem altered nutrition related labs Etiology hx of DM Signs/Symptoms: POC 136-213 Malnutrition Alert Is there a minimum of two criteria No selected? Query Text:Check all the applicable criteria. A minimum of two criteria are recommended for diagnosis of either severe or non-severe malnutrition. Malnutrition Related to Morbid Obesity Malnutrition related to morbid obesity No Intervention/Recommendation Comments 1. Continue with [facility] diet as ordered. 2. Monitor PO intake, wt, labs and skin integrity 3. F/U as low risk in 7 days Expected Outcomes/Goals Expected Outcomes/Goals 1. PO intake to meet at least 75% of nutritional needs. 2. Wt stability, skin to remain intact, labs to approach WNL.
--- NOTE | 2019-01-15 03:41 | Progress Notes ---
DATE: 01/14/2019 PSYCHIATRIC PROGRESS NOTE SUBJECTIVE: Staff was spoken to. The patient is interviewed. Mood is noted to be irritable. Affect is constricted. The patient is stating that he is not getting the smoke break the way that he likes to. The patient has been having difficult time to cope with the stress. No side effects to the medications are noted. The patient's case has been discussed with the psychiatrist from the [place] and the patient's condition has been explained in detail and we are requesting that the patient be transferred to the facility for further care. ASSESSMENT: The patient is stabilizing and awaiting placement. PLAN: To continue the patient with the supportive therapy and followup. JOB# [id number]
[2019-01-15] MEDS: INSULIN LISPRO SLIDING SCALE 100 UNITS/ML UNIT SUBQ SCH ×4 (06:39→20:46)
[2019-01-15] MEDS: Multivitamin Tab PO SCH (08:28)
[2019-01-15] MEDS: Aspirin 81mg Chewable Tab PO SCH (08:31)
[2019-01-15] MEDS: Insulin Glargine 100 units/ml 10ml Vial SUBQ SCH (09:09)
[2019-01-15 09:57] LABS: % BASOPHILS 0.9 % (0.0-2.0); % EOSINOPHILS 4.8 % (0.0-5.0); % LYMPHOCYTES 17.1 % (20.0-50.0); % NEUTROPHILS 69.2 % (40.0-80.0); BASOPHILE ABSOLUTE 0.1 Th/cumm (0-0.2); EOSINOPHILE ABSOLUTE 0.4 Th/cmm (0.1-0.4); HEMATOCRIT 43.3 % (41.0-60); HEMOGLOBIN 13.9 gm/dL (12-16); LYMPHOCYTE ABSOLUTE 1.4 Th/cmm (1.5-3.0); MEAN CELL VOLUME 87.1 fl (80-99); MEAN CORPUSCULAR HEMOGLOBIN 27.9 pg (27.0-31.0); MONOCYTE ABSOLUTE 0.6 Th/cmm (0.3-1.0); NEUTROPHILE ABSOLUTE 5.6 Th/cmm (1.8-8.0); PLATELET COUNT 187 Th/cmm (150-400); RED BLOOD COUNT 4.97 Mil/cmm (3.80-5.80); RED CELL DISTRIBUTION WIDTH 14.1 % (11.5-20.0); WHITE BLOOD COUNT 8.1 Th/cmm (4.8-10.8)
[2019-01-15 10:34] LABS: ALB/GLOB RATIO 1.5 (1.0-1.8); ALBUMIN 3.6 gm/dL (4.2-5.5); ALKALINE PHOSPHATASE 70 U/L (34-104); ANION GAP 10.6 (7.0-16.0); BILIRUBIN,TOTAL 0.5 mg/dL (0.3-1.0); BUN - UREA NITROGEN 16 mg/dL (7-25); CALCIUM SERUM 9.7 mg/dL (8.6-10.3); CARBON DIOXIDE 27.1 mEq/L (21.0-31.0); CHLORIDE 104 mEq/L (98-107); CREATININE - SERUM 0.9 mg/dL (0.7-1.3); GLUCOSE 163 mg/dL (70-105); POTASSIUM SERUM 4.7 mEq/L (3.5-5.1); SGOT 10 U/L (13-39); SGPT/ALT 11 U/L (7-52); SODIUM SERUM 137 mEq/L (136-145)
[2019-01-16] MEDS: INSULIN LISPRO SLIDING SCALE 100 UNITS/ML UNIT SUBQ SCH ×4 (06:38→21:33)
[2019-01-16] MEDS: Aspirin 81mg Chewable Tab PO SCH (08:39)
[2019-01-16] MEDS: Multivitamin Tab PO SCH (08:39)
[2019-01-16] MEDS: Insulin Glargine 100 units/ml 10ml Vial SUBQ SCH (08:41)
--- NOTE | 2019-01-16 16:43 | Progress Notes ---
DATE: 01/15/2019 PSYCHIATRIC PROGRESS NOTE SUBJECTIVE: Staff was spoken to. The patient is interviewed. Mood is noted to be irritable. Affect is constricted. The patient is not suicidal or homicidal. The patient is stating that he needs some place where he can rest because it is too noisy in here. Sleep and appetite are noted to be improving. No side effects to the medications are noted. ASSESSMENT: The patient is stabilizing and awaiting placement. PLAN: To continue the patient with the supportive therapy and followup. [facility]# [id number]
--- NOTE | 2019-01-16 17:58 | Progress Notes ---
DATE: 01/16/2019 SUBJECTIVE: Staff was spoken to. The patient is interviewed. Mood is noted to be irritable. Affect is constricted. The patient is stating that he has been trying his best, but has been having difficult time to cope with being in here. The patient has been getting easily frustrated and staff have been trying to get him that covers the patient's stay, but so far no transfer has been available. ASSESSMENT: The patient is still impulsive. PLAN: To continue the patient with the supportive therapy and followup. JOB# [id number]
[2019-01-17] MEDS: INSULIN LISPRO SLIDING SCALE 100 UNITS/ML UNIT SUBQ SCH ×4 (06:44→20:58)
[2019-01-17] MEDS: Aspirin 81mg Chewable Tab PO SCH (09:45)
[2019-01-17] MEDS: Multivitamin Tab PO SCH (09:46)
[2019-01-17] MEDS: Insulin Glargine 100 units/ml 10ml Vial SUBQ SCH (10:09)
--- NOTE | 2019-01-17 22:36 | Progress Notes ---
DATE: 01/17/2019 SUBJECTIVE: Staff was spoken to. The patient is interviewed. Mood is noted to be irritable. Affect is constricted. Coping skills are noted to be extremely poor. The patient has been stating that he is frustrated after being in here for more than 3 weeks and could not figure it out what is going on. The patient has been informed [facility] and so far nothing has been worked out. ASSESSMENT: The patient is still awaiting placement. PLAN: To continue the patient with the supportive therapy and followup. JOB# [id number]
[2019-01-18] MEDS: INSULIN LISPRO SLIDING SCALE 100 UNITS/ML UNIT SUBQ SCH ×4 (06:34→20:53)
[2019-01-18] MEDS: Multivitamin Tab PO SCH (08:59)
[2019-01-18] MEDS: Aspirin 81mg Chewable Tab PO SCH (08:59)
[2019-01-18] MEDS: Insulin Glargine 100 units/ml 10ml Vial SUBQ SCH (09:18)
--- NOTE | 2019-01-19 03:19 | Progress Notes ---
DATE: 01/18/2019 PSYCHIATRIC PROGRESS NOTE SUBJECTIVE: Staff was spoken to. The patient is interviewed. Mood is noted to be irritable. Affect is constricted. The patient is getting easily frustrated. 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 ASSESSMENT: The patient is stabilizing and awaiting placement. PLAN: To continue the patient with the supportive therapy and follow up. JOB# [id number]
[2019-01-19] MEDS: INSULIN LISPRO SLIDING SCALE 100 UNITS/ML UNIT SUBQ SCH ×2 (06:37→12:04)
[2019-01-19] MEDS: Multivitamin Tab PO SCH (08:37)
[2019-01-19] MEDS: Aspirin 81mg Chewable Tab PO SCH (08:37)
[2019-01-19] MEDS: Insulin Glargine 100 units/ml 10ml Vial SUBQ SCH (09:00)
--- NOTE | 2019-01-19 23:30 | Progress Notes ---
DATE: 01/19/2019 PSYCHIATRIC PROGRESS NOTE SUBJECTIVE: Staff was spoken to. The patient is interviewed. Mood is noted to be anxious. Affect is appropriate. He is not suicidal or homicidal. Insight and judgment are noted to be improving. Impulse control seems to be fair. No major side effects to the medications are noted. The patient is less aggressive. manager star has been finally able to find placement for this patient and the patient is going to be discharged today for follow up on an outpatient basis. JOB# [id number]
== END 2019-01-19 13:15 | DRG 885 ==
LOC: GERO 21:46
DX: F31.60 Bipolar disorder, current episode mixed, unspecified (principal); E11.9 Type 2 diabetes mellitus without complications; I10 Essential (primary) hypertension; E78.5 Hyperlipidemia, unspecified; E66.01 Morbid (severe) obesity due to excess calories; E11.40 Type 2 diabetes mellitus with diabetic neuropathy, unspecified; G89.29 Other chronic pain; M54.5 Low back pain; F17.210 Nicotine dependence, cigarettes, uncomplicated; K59.00 Constipation, unspecified; Z68.38 Body mass index [BMI] 38.0-38.9, adult
CPT/HCPCS: 36415-UA; 80053-TC; 80061-TC; 80178-TC; 82948-90; 83036-90; 85025-TC; 87230-TC; A4216; J1200; J1630; J1815; J2060; Z7610